=== PATIENT | female | born 1995 | race Caucasian/White ===

== ENCOUNTER 2019-08-27 18:03 | Emergency (ER) | payer MEDICAID ==
[~2019-08-27] VITALS: Ht 162.6 cm; Wt 70.4 kg
[2019-08-27 18:06] VITALS: BP 105/73
[2019-08-27] MEDS ORDERED: PRENATAL (18:22)
[2019-08-27] MEDS ORDERED: ZOLOFT (18:22)
== END 2019-08-27 19:49 | disposition home or self-care (01) ==
LOC: ED 19:36
DX: O9A.213 Injury, poisoning and certain other consequences of external causes complicating pregnancy, third trimester (principal); S63.502A Unspecified sprain of left wrist, initial encounter; Z3A.32 32 weeks gestation of pregnancy; W50.1XXA Accidental kick by another person, initial encounter; Y93.89 Activity, other specified; Y92.098 Other place in other non-institutional residence as the place of occurrence of the external cause; Y99.8 Other external cause status
CPT/HCPCS: 29260; 99283

== ENCOUNTER 2019-09-01 22:34 | Outpatient (CLI) | payer MEDICAID ==
[~2019-09-01] VITALS: Ht 162.6 cm; Wt 65.0 kg
[~2019-09-01 22:34] MED LIST: PRENATAL; ZOLOFT
[2019-09-01 23:04] VITALS: BP 105/72
[2019-09-01] MEDS ORDERED: MEPERIDINE/PF 50 MG/ML ONE (23:17)
[2019-09-01] MEDS ORDERED: ONDANSETRON ODT 4 MG ONE (23:17)
[2019-09-01] MEDS ORDERED: ONDANSETRON ODT 4 MG PO ONE (23:30)
[2019-09-01] MEDS ORDERED: MEPERIDINE/PF 50 MG/ML IM PRN (23:30)
== END 2019-09-01 23:43 | disposition home or self-care (01) ==
LOC: LDOP 22:34
PROVIDERS: ATTEND Obstetrics & Gynecology
DX: O26.893 Other specified pregnancy related conditions, third trimester (principal); R10.9 Unspecified abdominal pain; Z3A.33 33 weeks gestation of pregnancy
CPT/HCPCS: 59025; 99211; J2175; Q0162; G0463

== ENCOUNTER 2019-09-06 19:29 | Outpatient (CLI) | payer MEDICAID ==
[~2019-09-06] VITALS: Ht 162.6 cm; Wt 63.0 kg
[2019-09-06 19:47] VITALS: BP 94/61
[2019-09-06 20:57] LABS: MICROSCOPIC INDICATED
[2019-09-06 21:03] LABS: AMPHETAMINE SCREEN, URINE Negative (Negative); BARBITURATE SCREEN, URINE Negative (Negative); BENZODIAZEPINE SCREEN, URINE Negative (Negative); CANNABINOID SCREEN, URINE Negative (Negative); COCAINE SCREEN, URINE Negative (Negative); METHADONE SCREEN, URINE Negative (Negative); OPIATE SCREEN, URINE Negative (Negative)
[2019-09-06] MEDS ORDERED: LACTATED RINGERS 1,000 ML IVBOLUS ONE (21:30)
== END 2019-09-06 22:44 | disposition home or self-care (01) ==
LOC: LDOP 19:29
PROVIDERS: ATTEND Obstetrics & Gynecology
DX: O60.03 Preterm labor without delivery, third trimester (principal); Z3A.33 33 weeks gestation of pregnancy
CPT/HCPCS: 59025; 80307; 81001; 87086; 96360; 99211; J7120; G0463

== ENCOUNTER 2019-09-13 04:19 | Outpatient (CLI) | payer MEDICAID ==
[~2019-09-13] VITALS: Ht 162.6 cm; Wt 63.6 kg
[2019-09-13 04:59] VITALS: BP 95/62
[2019-09-13 05:07] LABS: MICROSCOPIC NOT IND
[2019-09-13 05:19] LABS: AMPHETAMINE SCREEN, URINE Negative (Negative); BARBITURATE SCREEN, URINE Negative (Negative); BENZODIAZEPINE SCREEN, URINE Negative (Negative); CANNABINOID SCREEN, URINE Negative (Negative); COCAINE SCREEN, URINE Negative (Negative); METHADONE SCREEN, URINE Negative (Negative); OPIATE SCREEN, URINE Negative (Negative)
[2019-09-13] MEDS ORDERED: TERBUTALINE 1 MG/ML, 1ML ONE (05:46)
[2019-09-13] MEDS ORDERED: TERBUTALINE 1 MG/ML, 1ML IVPush PRN (06:00)
[2019-09-13] MEDS ORDERED: TERBUTALINE 1 MG/ML, 1ML SQ PRN (06:00)
== END 2019-09-13 06:30 | disposition home or self-care (01) ==
LOC: LDOP 04:19
PROVIDERS: ATTEND Obstetrics & Gynecology
DX: O42.913 Preterm premature rupture of membranes, unspecified as to length of time between rupture and onset of labor, third trimester (principal); O99.343 Other mental disorders complicating pregnancy, third trimester; R10.9 Unspecified abdominal pain; Z3A.34 34 weeks gestation of pregnancy
CPT/HCPCS: 59025; 80307; 81003; 87086; 89060; 96372; 99211; J3105; G0463; Q0114

== ENCOUNTER 2019-09-27 04:12 | Outpatient (CLI) | payer MEDICAID | END 2019-09-27 05:50 | disposition home or self-care (01) | LOC: LDOP 04:12 | PROVIDERS: ATTEND Obstetrics & Gynecology | DX: O46.93 Antepartum hemorrhage, unspecified, third trimester (principal); O42.913 Preterm premature rupture of membranes, unspecified as to length of time between rupture and onset of labor, third trimester; Z3A.36 36 weeks gestation of pregnancy | CPT/HCPCS: 59025; 87081; 87147; 89060; 99211; G0463; Q0114 ==

== ENCOUNTER 2019-10-08 09:09 | Outpatient (CLI) | payer MEDICAID ==
[~2019-10-08] VITALS: Ht 162.6 cm; Wt 72.2 kg
[2019-10-08 09:45] VITALS: BP 98/66
[2019-10-08 10:02] LABS: AMPHETAMINE SCREEN, URINE Negative (Negative); BARBITURATE SCREEN, URINE Negative (Negative); BENZODIAZEPINE SCREEN, URINE Negative (Negative); CANNABINOID SCREEN, URINE Negative (Negative); COCAINE SCREEN, URINE Negative (Negative); METHADONE SCREEN, URINE Negative (Negative); OPIATE SCREEN, URINE Negative (Negative)
[2019-10-08 10:05] LABS: MICROSCOPIC INDICATED
== END 2019-10-08 10:52 | disposition home or self-care (01) ==
LOC: LDOP 09:09
PROVIDERS: ATTEND Obstetrics & Gynecology
DX: O26.893 Other specified pregnancy related conditions, third trimester (principal); R10.9 Unspecified abdominal pain; Z3A.38 38 weeks gestation of pregnancy
CPT/HCPCS: 59025; 80307; 81001; 87086; 99211; G0463

== ENCOUNTER 2019-10-15 07:30 | Inpatient (IN) | payer MEDICAID ==
[~2019-10-15] VITALS: Ht 152.4 cm; Wt 72.0 kg
[2019-10-15] MEDS ORDERED: LIDOCAINE 1%, 20ML ONE (12:20)
[2019-10-15] MEDS ORDERED: NEWBORN KIT ONE (12:20)
[2019-10-15] MEDS ORDERED: MISOPROSTOL 200 MCG TABLET ONE (12:21)
[2019-10-15] MEDS ORDERED: MISOPROSTOL 25 MCG TABLET ONE (12:21)
[2019-10-15] MEDS ORDERED: OXYTOCIN 30U/ 0.9% NaCL 500ML 500 ML ONE (12:21)
[2019-10-15] MEDS: D5%-LACTATED RINGERS 1,000 ML IV SCH ×2 (13:02→21:35)
[2019-10-15] MEDS ORDERED: OXYTOCIN 30U/ 0.9% NaCL 500ML 500 ML IV PRN (13:02)
[2019-10-15] MEDS ORDERED: OXYTOCIN 30U/ 0.9% NaCL 500ML 500 ML IV ONE (13:02)
[2019-10-15] MEDS: LACTATED RINGERS 1,000 ML IV SCH ×2 (13:02→21:02)
[2019-10-15 13:17] LABS: BASOPHILS # (AUTO) 0.03 x10^3/uL (0-0.1); BASOPHILS % (AUTO) 0 % (0-1); EOSINOPHILS # (AUTO) 0.07 x10^3/uL (0-0.4); EOSINOPHILS % (AUTO) 1 % (1-7); LYMPHOCYTES # (AUTO) 1.65 x10^3/uL (1-3.4); LYMPHOCYTES % (AUTO) 17 % (22-44); MD NO; MEAN CORPUSCULAR HGB CONC 32.8 g/dL (32.4-35.8); MEAN CORPUSCULAR VOLUME 91.4 fL (80-100); MEAN PLATELET VOLUME 10.4 fL (7.4-10.4); MONOCYTES # (AUTO) 0.49 x10^3/uL (0.2-0.8); MONOCYTES % (AUTO) 5 % (2-9); NEUTROPHILS # (AUTO) 7.67 x10^3/uL (1.8-6.8); NEUTROPHILS % (AUTO) 77 % (42-75); PLATELET COUNT 218 x10^3/uL (130-400); RED BLOOD COUNT 3.55 x10^6/uL (3.82-5.3); RED CELL DISTRIBUTION WIDTH 13.5 % (9.6-15.2)
[2019-10-15] MEDS ORDERED: TERBUTALINE 1 MG/ML, 1ML SQ PRN (13:30)
[2019-10-15] MEDS ORDERED: ONDANSETRON 2MG/ML, 2ML IVPush PRN (13:30)
[2019-10-15] MEDS ORDERED: TERBUTALINE 1 MG/ML, 1ML IVPush PRN (13:30)
[2019-10-15] MEDS ORDERED: PLEASE ENTER HEIGHT AND WEIGHT MC SCH (13:30)
[2019-10-15] MEDS ORDERED: ALUMINUM/MAG/SIMETHICONE 30 ML UDC PO PRN (13:30)
[2019-10-15] MEDS ORDERED: SODIUM CITRATE/CITRIC ACID 30 ML UDC PO PRN (13:30)
[2019-10-15] MEDS ORDERED: METOCLOPRAMIDE 5 MG/ML, 2ML IVPush PRN (13:30)
[2019-10-15] MEDS ORDERED: MISOPROSTOL 25 MCG TABLET VG PRN (13:30)
[2019-10-15] MEDS ORDERED: SODIUM CHLORIDE FLUSH 10ML SYR IVF PRN (13:30)
[2019-10-15] MEDS ORDERED: CALCIUM CARBONATE 500 MG TAB.CHEW PO PRN (13:30)
[2019-10-15 13:31] LABS: AMPHETAMINE SCREEN, URINE Negative (Negative); BARBITURATE SCREEN, URINE Negative (Negative); BENZODIAZEPINE SCREEN, URINE Negative (Negative); CANNABINOID SCREEN, URINE Negative (Negative); COCAINE SCREEN, URINE Negative (Negative); METHADONE SCREEN, URINE Negative (Negative); OPIATE SCREEN, URINE Negative (Negative)
[2019-10-15 19:30] VITALS: BP 101/70
[2019-10-15] MEDS ORDERED: FLU VACC QS2019-20 36MOS UP/PF 0.5 ML IM-VACC ONE ×2 (20:30)
[2019-10-16] MEDS ORDERED: DIPHENHYDRAMINE 50 MG CAPSULE PO PRN (01:00)
[2019-10-16] MEDS ORDERED: DIPHENHYDRAMINE 25 MG CAPSULE ONE (01:03)
[2019-10-16] MEDS ORDERED: DIPHENHYDRAMINE 25 MG CAPSULE PO PRN (01:30)
[2019-10-16] MEDS: LACTATED RINGERS 1,000 ML IV SCH ×2 (04:37→18:04)
[2019-10-16] MEDS: D5%-LACTATED RINGERS 1,000 ML IV SCH ×3 (05:02→21:02)
[2019-10-16] MEDS ORDERED: AMPICILLIN 2 GM in SODIUM CHLORIDE 0.9% 100 ML IVPB STA (13:09)
[2019-10-16] MEDS: AMPICILLIN 1 GM in SODIUM CHLORIDE 0.9% 50 ML IVPB SCH ×2 (17:30→21:30)
[2019-10-16 20:00] VITALS: BP 106/75
[2019-10-17] MEDS: AMPICILLIN 1 GM in SODIUM CHLORIDE 0.9% 50 ML IVPB SCH ×4 (01:09→13:47)
[2019-10-17] MEDS: LACTATED RINGERS 1,000 ML IV SCH (01:10)
[2019-10-17] MEDS ORDERED: FENTANYL PF 100 MCG/2ML ONE ×3 (07:25→11:48)
[2019-10-17] MEDS: FENTANYL PF 100 MCG/2ML IVPush PRN ×3 (07:29→11:49)
[2019-10-17] MEDS: D5%-LACTATED RINGERS 1,000 ML IV SCH (07:45)
[2019-10-17] MEDS ORDERED: ONDANSETRON 2MG/ML, 2ML ONE (10:08)
[2019-10-17] MEDS: OXYTOCIN 30U/ 0.9% NaCL 500ML 500 ML IV SCH ×6 (13:23→23:23)
[2019-10-17] MEDS ORDERED: SIMETHICONE 80 MG CHEW TAB PO PRN (13:30)
[2019-10-17] MEDS ORDERED: OXYcodone/APAP 5/325MG TABLET PO PRN ×2 (13:30)
[2019-10-17] MEDS ORDERED: ACETAMINOPHEN 325 MG TABLET PO PRN (13:30)
[2019-10-17] MEDS ORDERED: METHYLERGONOVINE 0.2 MG/ML IM PRN (13:30)
[2019-10-17] MEDS ORDERED: OXYTOCIN 10 UNITS/ML, 1ML IM PRN (13:30)
[2019-10-17] MEDS ORDERED: CARBOPROST TROMETHAMINE 250 MCG/ML, 1ML IM PRN (13:30)
[2019-10-17] MEDS ORDERED: ONDANSETRON 2MG/ML, 2ML IV PRN (13:30)
[2019-10-17] MEDS ORDERED: OXYTOCIN 30U/ 0.9% NaCL 500ML 500 ML ONE (15:33)
[2019-10-17 17:30] VITALS: BP 110/74
[2019-10-17] MEDS: IBUPROFEN 600 MG TABLET PO PRN (17:40)
[2019-10-17 20:15] VITALS: BP 111/68
[2019-10-17 23:35] VITALS: BP 99/64
[2019-10-17 23:43] LABS: BASOPHILS # (AUTO) 0.13 x10^3/uL (0-0.1); BASOPHILS % (AUTO) 1 % (0-1); EOSINOPHILS % (AUTO) 0 % (1-7); LYMPHOCYTES # (AUTO) 1.34 x10^3/uL (1-3.4); LYMPHOCYTES % (AUTO) 9 % (22-44); MD NO; MEAN CORPUSCULAR HEMOGLOBIN 30.4 pg (27.0-34.8); MEAN CORPUSCULAR HGB CONC 33.5 g/dL (32.4-35.8); MEAN CORPUSCULAR VOLUME 90.8 fL (80-100); MEAN PLATELET VOLUME 10.4 fL (7.4-10.4); MONOCYTES # (AUTO) 0.91 x10^3/uL (0.2-0.8); MONOCYTES % (AUTO) 6 % (2-9); NEUTROPHILS # (AUTO) 12.62 x10^3/uL (1.8-6.8); NEUTROPHILS % (AUTO) 84 % (42-75); PLATELET COUNT 216 x10^3/uL (130-400); RED BLOOD COUNT 3.34 x10^6/uL (3.82-5.3)
[2019-10-18] MEDS: IBUPROFEN 600 MG TABLET PO PRN ×2 (03:54→20:01)
[2019-10-18] MEDS: DOCUSATE 100 MG CAPSULE PO PRN ×2 (03:54→08:02)
[2019-10-18 03:58] VITALS: BP 103/71
[2019-10-18 08:02] VITALS: BP 99/65
[2019-10-18] MEDS: PRENATAL VIT/IRON/FA 1 EACH TABLET PO SCH (08:02)
[2019-10-18] MEDS ORDERED: DIPH,PERTUSS(ACELL),TET VAC/PF NC IM-VACC ONE (09:00)
[2019-10-18] MEDS: OXYTOCIN 30U/ 0.9% NaCL 500ML 500 ML IV SCH ×2 (09:23→22:33)
[2019-10-18 12:13] VITALS: BP 107/71
[2019-10-18 19:35] VITALS: BP 104/71
[2019-10-19] MEDS: IBUPROFEN 600 MG TABLET PO PRN ×2 (04:08→11:26)
[2019-10-19] MEDS: OXYTOCIN 30U/ 0.9% NaCL 500ML 500 ML IV SCH (05:23)
[2019-10-19] MEDS: PRENATAL VIT/IRON/FA 1 EACH TABLET PO SCH (09:00)
[2019-10-19 10:00] VITALS: BP 114/78
[2019-10-19] MEDS ORDERED: DOCU-131 PO (10:09)
[2019-10-19] MEDS ORDERED: FERR325T23 PO (10:09)
[2019-10-19] MEDS ORDERED: IBUP-1222 PO (10:10)
[2019-10-19] MEDS ORDERED: OXYC-302 PO (10:11)
[2019-10-19] MEDS ORDERED: DIPH,PERTUSS(ACELL),TET VAC/PF NC IM-VACC ONE (13:34)
[2019-10-19] MEDS ORDERED: FLU VACC QS2019-20 36MOS UP/PF 0.5 ML IM-VACC ONE (14:00)
== END 2019-10-19 19:01 | disposition home or self-care (01) | DRG 807 ==
LOC: LDIP 12:00 → 2NW 10-17 17:12
PROVIDERS: ADMIT Obstetrics & Gynecology; ATTEND Obstetrics & Gynecology
PROC: 10E0XZZ Delivery of Products of Conception, External Approach (ICD-10-PCS; principal; 2019-10-17)
DX: O80 Encounter for full-term uncomplicated delivery (principal); Z37.0 Single live birth; Z3A.39 39 weeks gestation of pregnancy
CPT/HCPCS: 36415; J7121; 80307; 85025; 86592; 86850; 86900; 90686; 90715; G0378; J0290; J2405; J3010; J2590; J7120; Q0163